=== PATIENT | male | born 1940 | race Caucasian/White ===

== ENCOUNTER 2021-08-30 11:37 | Day surgery (SDC) | payer MEDICARE, BC ==
[2021-08-25 12:42] VITALS: BMI 27.3
[~2021-08-30 11:37] MED LIST: LACTATED RINGERS 1,000 ML IV SCH; LIDOCAINE 1% (10MG/ML) FOR IV START INTRADERMA PRN; MORPHINE SULFATE 2 MG/ML SYRINGE IV PRN; ONDANSETRON 4 MG/2 ML VIAL IVP PRN
[2021-08-30 12:17] VITALS: TEMP 97.2
[2021-08-30] MEDS ORDERED: PROPOFOL 10 MG/ML 20 ML VIAL IV ONE (12:41)
[2021-08-30 13:07] VITALS: RESP 16
[2021-08-30 13:16] VITALS: BP 130/84; PULSE 49
[2021-08-30 13:23] LABS: HCT 30.9 % (39.0-53.0); HGB 10.4 gm/dL (13.0-17.5); MCH 39.4 pg (25.0-35.0); MCHC 33.6 g/dL (31.0-37.0); MCV 117.2 fL (80.0-100.0); Macrocytosis Marked; Mean Platelet Volume 9.1; Platelet Count 160 k/uL (150-450); RBC 2.63 m/uL (4.30-5.90); RDW 15.7 % (11.5-15.5); Reticulocyte % 2.7 % (0.5-2.0); WBC 2.9 k/uL (3.8-10.6)
[2021-08-30 14:15] LABS: Lymphocytes # (M) 1.39 k/uL (1.0-4.8); Monocytes # (M) 0.81 k/uL (0-1.0); Neutrophils % (M) 24 %; Nucleated Red Blood Cells 0 /100 WBC (0-0); Total Cells Counted 100
--- NOTE | 2021-08-30 15:55 | PCN ---
PROCEDURE NOTE DATE OF PROCEDURE: 08/30/2021. PREOP DIAGNOSIS: Monoclonal gammopathy of unknown significance. POSTOP DIAGNOSIS: Monoclonal gammopathy of unknown significance. PROCEDURE: Bone marrow aspirate and biopsy. SITE: Right iliac crest. ANESTHESIA: Local with IV systemic sedation. DETAILS: Utilizing sterile technique, the skin overlying the right iliac crest were prepared with Betadine and alcohol. After adequate sterile draping, local anesthesia with 1% lidocaine, a size 11 4 inch Jamshidi needle was utilized to access the periosteum with ease. A total of 15 mL of aspirate and 3 cm bone core biopsies were obtained. The patient tolerated the procedure extremely well. There was no immediate procedure related complications. TOTAL BLOOD LOSS: Less than 1 mL. Results pending. MMODL / IJN: [id number] /
== END 2021-08-30 13:54 | disposition home or self-care (01) ==
LOC: OR 11:37
PROVIDERS: ATTEND Internal Medicine Hematology & Oncology
DX: D47.2 Monoclonal gammopathy (principal); I10 Essential (primary) hypertension; M10.9 Gout, unspecified; N42.9 Disorder of prostate, unspecified; K21.9 Gastro-esophageal reflux disease without esophagitis; Z91.011 Allergy to milk products; Z88.7 Allergy status to serum and vaccine; Z91.09 Other allergy status, other than to drugs and biological substances; Z79.899 Other long term (current) drug therapy
CPT/HCPCS: 85025; 85045; 38222; J2704

== ENCOUNTER → 2021-09-17 | Outpatient (CLI) | payer MEDICARE, BC ==
--- NOTE | 2021-09-19 06:10 | PE ---
EXAMINATION TYPE: PET CT fusion skull to thigh DATE OF EXAM: 09/17/2021 COMPARISON: NONE HISTORY: Multiple myeloma bone marrow biopsy August 30, 2021 TECHNIQUE: Following the intravenous administration of 13 mCi of F-18 FDG, whole body images are per formed from the skull base to the midthigh. Images are reviewed on the computer in the coronal, axia l, and sagittal planes. Reconstructed rotating images are created on independent workstation and rev iewed on the computer. A localization and attenuation correction CT is performed in conjunction wit h the PET scan. Blood glucose level equals 99. SCAN: Initial Scan FINDINGS: SKULL BASE AND NECK: No suspicious areas of increased hypermetabolic uptake. CHEST, MEDIASTINUM, AND HILAR REGION: No suspicious areas of abnormal hypermetabolic uptake. ABDOMEN AND PELVIS: Normal excretion. Nonspecific bowel uptake in the pelvis. No abnormal hypermetabo lic uptake. OSSEOUS STRUCTURES: No abnormal focal hypermetabolic uptake. OTHER CT: There is a 2.3 x 1.8 cm oval well-circumscribed tear superior mediastinum axial image 64 th at is ametabolic. 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 Calcification at level of the mitral and aortic valves. Mild coronary artery calcification. Diminished size and cortical thinning to the left kidney. Enlarged prostate consistent with BPH. IMPRESSION: No hypermetabolic adenopathy or suspicious focal hypermetabolic osseous lesions.
== END | disposition home or self-care (01) ==
LOC: RADPETMAIN 11:01
PROVIDERS: ATTEND Internal Medicine Hematology & Oncology
DX: C90.00 Multiple myeloma not having achieved remission (principal)
CPT/HCPCS: 78815; A9552

== ENCOUNTER → 2023-10-03 | Outpatient (CLI) | payer MEDICARE, BC | END | disposition home or self-care (01) | LOC: LABPRL 12:34 | PROVIDERS: ATTEND Internal Medicine Hematology & Oncology | DX: I10 Essential (primary) hypertension (principal); M10.9 Gout, unspecified; D47.2 Monoclonal gammopathy; D61.818 Other pancytopenia; E78.5 Hyperlipidemia, unspecified; N18.31 Chronic kidney disease, stage 3a; Z71.3 Dietary counseling and surveillance | CPT/HCPCS: 80053; 82728; 82784; 83540; 83550; 83883; 84165; 86334 ==